=== PATIENT | male | born 1960 | race Caucasian/White ===

== ENCOUNTER → 2022-03-04 | Outpatient (CLI) | payer BC ==
[~2022-03-04] MED LIST: 'CLONIDINE0.1 MG PO; AMLODIPINE BESY10 MG PO; ASPIRIN CHEWABL81 MG PO; CENTURY ULTIMA1 EAC1 PO; DOXAZOSIN4 MG PO; FERROUS SULFAT324 M2 PO; HYDRALAZINE HC100 MG PO; IMDUR SA30 MG PO; JANUVIA100 MG PO; LIPITOR20 MG PO; LISINOPRIL20 MG PO; NATEGLINIDE60 MG PO; PREDNISONE10 MG PO; SODIUM BICARBO650 MG PO; TAMSULOSIN HCL0.4 MG PO; TORSEMIDE20 MG PO; VITAMIN C1000 M5 PO; VITAMIN D350 MC2 PO; ZITHROMAX250 MG PO
== END | disposition home or self-care (01) ==
LOC: LAB 09:21
PROVIDERS: ATTEND Family Medicine
DX: E11.9 Type 2 diabetes mellitus without complications (principal); R53.83 Other fatigue; R79.89 Other specified abnormal findings of blood chemistry